=== PATIENT | female | born 1975 | race Two or more races ===

== ENCOUNTER 2018-11-14 19:03 | Emergency (ER) | payer SELFPAY ==
[2018-11-14 19:12] VITALS: Wt 73.8 kg
[2018-11-14 20:43] LABS: ALBUMIN 3.6 g/dL (3.4-5.0); ALKALINE PHOSPHATASE 114 U/L (46-116); ALT (SGPT) 39 U/L (10-68); AMYLASE - SERUM 50 U/L (25-115); BILIRUBIN - TOTAL 0.49 mg/dL (0.2-1.3); CALC OSMOLALITY 264 mosm/kg (275-300); CALCIUM 8.6 mg/dL (8.5-10.1); CARBON DIOXIDE 25.4 mmol/L (21.0-32.0); CHLORIDE - SERUM 104 mmol/L (98-107); CREATININE - SERUM 0.6 mg/dL (0.6-1.3); GLUCOSE 86 mg/dL (74-106); LIPASE 134 U/L (73-393); POTASSIUM - SERUM 4.1 mmol/L (3.5-5.1); PROTEIN - SERUM 7.1 g/dL (6.4-8.2); SODIUM 133 mmol/L (136-145); TROPONIN-I < 0.017 ng/mL (0.000-0.060); UREA NITROGEN 13 mg/dL (7-18); eGFR NON AFRICAN AMERICAN > 90 mL/min (90-120)
[2018-11-14 20:47] LABS: COLOR YELLOW (YELLOW)
[2018-11-14 20:48] LABS: APPEARANCE CLEAR (CLEAR); BILIRUBIN NEGATIVE (NEGATIVE); GLUCOSE NEGATIVE (NEGATIVE); KETONE NEGATIVE (NEGATIVE); NITRITE NEGATIVE (NEGATIVE); PROTEIN NEGATIVE (NEGATIVE); UROBILINOGEN NORMAL (NORMAL)
[2018-11-14 20:49] LABS: BACTERIA MANY /hpf (NONE SEEN); EPITHELIAL CELLS 0-5 /hpf (0-5); RED CELLS - URINE 0-5 /hpf (0-5); WHITE CELLS - URINE 0-5 /hpf (0-5)
[2018-11-14 20:50] LABS: HCG URINE NEGATIVE (NEGATIVE)
[2018-11-14 21:12] LABS: HEMATOCRIT 32.1 % (36.0-48.0); HEMOGLOBIN 10.6 g/dL (12-16); MCH 25.5 pg (26.0-34.0); MCV 77.3 fL (80.0-100.0); RBC 4.15 10x6/uL (4.00-5.40); WBC 6.5 10x3/uL (4.8-10.8)
[2018-11-14 21:13] LABS: BASOPHILS 0.2 % (0-2); EOSINOPHILS 2.4 % (0-7); IMMATURE GRANULOCYTES 0.2 % (0-5); LYMPHOCYTES 41.7 % (15-50); MEAN PLATELET VOLUME 10.6 fL (7.4-10.4); MONOCYTES 7.8 % (2-11); NEUTROPHILS 47.7 % (40-80); PLATELET COUNT 213 10x3/uL (130-400); RDW 14.3 % (11.5-14.5)
[2018-11-14] MEDS ORDERED: OMEPRAZOLE40 MG PO (22:01)
[2018-11-14] MEDS ORDERED: MACROBID100 MG PO (22:07)
[2018-11-14 22:47] VITALS: BP 118/73
== END 2018-11-14 22:48 | disposition home or self-care (01) ==
LOC: D.ER 19:03
PROVIDERS: Family Medicine
DX: N39.0 Urinary tract infection, site not specified (principal)